=== PATIENT | female | born 1990 | race Caucasian/White ===

== ENCOUNTER 2016-10-27 09:38 | Emergency (ER) | payer MEDICAID ==
[2016-10-27 10:56] VITALS: BP 121/65
--- NOTE | 2016-10-27 12:00 | EDM.PDOC ---
[id number] 4d ABD PAIN AND WEAKNESS Time Seen by Provider: 10/27/16 11:35 Source: Reports: Patient, Family History Limitations: Reports: No limitations - History of Present Illness INITIAL COMMENTS - FREE TEXT/NARRATIVE: 26-year-old female with lower abdominal pain for the last couple of months. She 's also been getting lightheaded when standing. She had an abnormal Pap smear and was supposed to have further studies but hasn't had them done. She called her clinic today to let them know that she was having some symptoms and they told her to come to the emergency room. She looks perfectly comfortable, vitals are normal. Appetite is normal. Location: other (Mostly across the lower abdomen) Quality: Reports: ache Context: Denies: sick contact, bad/questionable food, recent surgery Associated Symptoms (-Female): Denies: diarrhea, loss of appetite, nausea/ vomiting - Related Data Allergies/ADRs: Allergies Allergy/AdvReac Type Severity Reaction Status Date / Time amoxicillin trihydrate Allergy Unknown unknown Verified 10/27/16 11:00 [From Augmentin] potassium clavulanate Allergy Unknown unknown Verified 10/27/16 11:00 [From Augmentin] Home Meds: Home Meds NK [No Known Home Meds] 02/02/15 [History] Past Medical History Genitourinary History: Reports: Other (see below) Other Genitourinary History: Had a blood clot in left kidney [employer] History: Reports: Other Psychiatric History: pt tried cutting self as suicide attempt, studio hand came. 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 Oncologic Surgical History: Reports: Other (see below) Other Oncologic Surgeries/Procedures: LEEP Social & Family History - Tobacco Use Smoking Status *Q: Never Smoker Second Hand Smoke Exposure: No - Caffeine Use Caffeine Use: Reports: Coffee, Soda, Tea - Alcohol Use Days Per Week of Alcohol Use: 1 Number of Drinks Per Day: 0 Total Drinks Per Week: 0 - Recreational Drug Use Recreational Drug Use: No ED ROS GENERAL - Review of Systems Review Of Systems: See Below Constitutional: Denies: fever, chills HEENT: Reports: No symptoms Respiratory: Denies: Shortness of Breath Cardiovascular: Reports: Syncope (Has several near syncope episodes). Denies: Chest pain GI/Abdominal: Reports: Abdominal pain. Denies: Constipation, Diarrhea, Vomiting : Reports: no symptoms Skin: Reports: other (Has a few spots of pruritic rash on her left wrist) Neurological: Reports: No Symptoms ED EXAM, GI/ABD - Physical Exam Exam: See Below Exam Limited By: No limitations General Appearance: alert, no apparent distress Eyes: bilateral: normal appearance Respiratory/Chest: no respiratory distress, lungs clear, decreased breath sounds (Diffuse decrease in breath sounds but no abnormal sounds) Cardiovascular: regular rate, rhythm GI/Abdominal: tenderness (Markedly tender to even light palpation making it difficult to assess) Extremities: No: pedal edema Neurological: alert, oriented Psychiatric: depressed mood, flat affect Skin Exam: Warm, Dry Course - Vital Signs Last Recorded V/S: Last Vital Signs Temp 97.5 F 10/27/16 11:06 Pulse 81 10/27/16 11:06 Resp 13 10/27/16 11:06 BP 121/65 10/27/16 11:06 Pulse Ox 100 10/27/16 11:06 - Orders/Labs/Meds Labs: Laboratory Tests 10/27/16 10/27/16 Range/Units 12:01 12:01 WBC 11.5 H (4.5-11.0) K/uL RBC 4.53 (3.30-5.50) M/uL Hgb 12.8 D (12.0-15.0) g/dL Hct 40.6 (36.0-48.0) % MCV 90 (80-98) fL MCH 28 (27-31) pg MCHC 32 (32-36) % Plt Count 268 (150-400) K/uL Neut % (Auto) 72 H (36-66) % Lymph % (Auto) 21 L (24-44) % Reynolds % (Auto) 5 (2-6) % Eos % (Auto) 1 L (2-4) % Baso % (Auto) 1 (0-1) % Sodium 141 (140-148) mmol/L Potassium 4.2 (3.6-5.2) mmol/L Chloride 105 (100-108) mmol/L Carbon Dioxide 27 (21-32) mmol/L Anion Gap 9.4 (5.0-14.0) mmol/L BUN 13 D (7-18) mg/dL Creatinine 0.8 (0.6-1.0) mg/dL Est Cr Clr Drug Dosing 118.06 mL/min Estimated GFR (MDRD) > 60 (>60) Glucose 94 (74-106) mg/dL Calcium 8.8 (8.5-10.1) mg/dL Total Bilirubin 0.2 (0.2-1.0) mg/dL AST 20 (15-37) U/L ALT 23 (12-78) U/L Alkaline Phosphatase 53 (46-116) U/L Total Protein 7.9 (6.4-8.2) g/dL Albumin 4.1 (3.4-5.0) g/dL Globulin 3.8 H (2.3-3.5) g/dL Albumin/Globulin Ratio 1.1 L (1.2-2.2) - Re-Assessments/Exams Free Text/Narrative Re-Assessment/Exam: 10/27/16 12:02 CBC CMP will be obtained. 10/27/16 12:39 Labs were all reassuring. Patient is going to make an appointment with a primary care provider next week for additional studies such as pelvic ultrasound and exam. She is also going to get her medical records sent up from her previous provider 10/27/16 12:41 Departure - Departure Time of Disposition: 12:59 Disposition: Home, Self-Care 01 Condition: good Clinical Impression: Abdominal pain Qualifiers: Abdominal location: lower abdomen, unspecified Qualified Code(s): R10.30 - Lower abdominal pain, unspecified Instructions: Abdominal Pain, Adult, [id number] Referrals: PCP,None [Primary Care Provider] - Forms: ED Department Discharge Care Plan Goals: Diet and activity as tolerated, have medical records transferred to [facility] and find a primary care provider in the next 1 to 2 weeks. Return sooner if worsening or concerns.
== END 2016-10-27 12:59 | disposition home or self-care (01) ==
LOC: JP.ED 09:38
DX: R10.30 Lower abdominal pain, unspecified (principal); Z88.1 Allergy status to other antibiotic agents; Z98.890 Other specified postprocedural states; Z85.41 Personal history of malignant neoplasm of cervix uteri
CPT/HCPCS: 36415; 80053; 85025; 99282; 99284

== ENCOUNTER 2022-01-08 12:00 | Emergency (ER) | payer MEDICAID, OTHER ==
[2022-01-08 12:44] VITALS: BP 117/70; PULSE 70
== END 2022-01-08 13:27 | disposition home or self-care (01) ==
LOC: JP.ED 12:00
DX: J02.8 Acute pharyngitis due to other specified organisms (principal); H61.23 Impacted cerumen, bilateral; Z88.0 Allergy status to penicillin
CPT/HCPCS: 99281; 99283

== ENCOUNTER 2022-03-17 20:07 | Emergency (ER) | payer OTHER ==
[2022-03-17 20:16] VITALS: BP 128/84; PULSE 97
== END 2022-03-17 22:49 | disposition home or self-care (01) ==
LOC: JP.ED 20:07
DX: R68.2 Dry mouth, unspecified (principal); R60.0 Localized edema; Z88.0 Allergy status to penicillin; Z91.048 Other nonmedicinal substance allergy status
CPT/HCPCS: 36415; 70360; 70360-26; 80048; 85025; 86308; 87081; 87880-QW; 99283